=== PATIENT | male | born 1990 | race Two or more races ===

== ENCOUNTER 2018-01-05 21:34 | Emergency (ER) | payer SELFPAY ==
[~2018-01-05] VITALS: Ht 180.3 cm; Wt 71.7 kg
[2018-01-05 21:47] VITALS: BP 119/62
--- NOTE | 2018-01-05 22:03 | NUR ---
MD AT BEDSIDE SPEAKING WITH PATIENT.
--- NOTE | 2018-01-05 22:10 | NUR ---
EMT AT BEDSIDE FOR WOUND CARE.
[2018-01-05] MEDS ORDERED: CEPHALEXIN MONOHYDRATE 500 MG CAPSULE PO ONE ×2 (22:16→22:30)
[2018-01-05] MEDS ORDERED: BACI/NEOM/POLY B OINT PKT 1 UDPKT PACKET TP ONE (22:30)
== END 2018-01-05 22:44 | disposition home or self-care (01) ==
LOC: ER 21:36
DX: S67.190A Crushing injury of right index finger, initial encounter (principal); S61.210A Laceration without foreign body of right index finger without damage to nail, initial encounter; S61.250A Open bite of right index finger without damage to nail, initial encounter; J45.909 Unspecified asthma, uncomplicated; W54.0XXA Bitten by dog, initial encounter; W23.0XXA Caught, crushed, jammed, or pinched between moving objects, initial encounter; Y93.89 Activity, other specified; Y92.89 Other specified places as the place of occurrence of the external cause; Y99.8 Other external cause status
CPT/HCPCS: 29130; 73140; 99284; A4606; A6402; Z7610